=== PATIENT | male | born 1965 | race Caucasian/White ===

== ENCOUNTER → 2020-02-08 | Outpatient (CLI) | payer SELFPAY | LOC: M LABSMTC 13:39 | PROVIDERS: ATTEND Pediatrics | DX: Z20.828 Contact with and (suspected) exposure to other viral communicable diseases (principal); Z11.59 Encounter for screening for other viral diseases ==

== ENCOUNTER 2023-11-06 17:38 | Emergency (ER) | payer OTHER, SELFPAY ==
[~2023-11-06] VITALS: Ht 167.6 cm; Wt 61.5 kg
[2023-11-06 17:38] VITALS: TEMP 98.1
[2023-11-06] MEDS: DOXYCYCLINE HYCLATE 100MG TABLET PO ONE (19:49)
[2023-11-06 19:52] VITALS: BP 160/81; O2SAT 100
== END 2023-11-06 19:54 | disposition home or self-care (01) ==
LOC: M ED 17:38
DX: S30.860A Insect bite (nonvenomous) of lower back and pelvis, initial encounter (principal); W57.XXXA Bitten or stung by nonvenomous insect and other nonvenomous arthropods, initial encounter; Y92.9 Unspecified place or not applicable; Y93.89 Activity, other specified; Y99.9 Unspecified external cause status